=== PATIENT | male | born 1965 | race Caucasian/White ===

== ENCOUNTER 2018-08-19 09:24 | Day surgery (SDC) | payer OTHER ==
[2018-08-17 17:28] VITALS: BMI 28.1
[~2018-08-19 09:24] MED LIST: LACTATED RINGERS 1,000 ML IV SCH; LIDOCAINE 1% 20 ML VIAL (10MG/ML) FOR IV START INTRADERMA PRN; MIDAZOLAM (PF) 2 MG/2 ML VIAL IV PRN
[2018-08-19 10:05] VITALS: TEMP 98.8
[2018-08-19] MEDS ORDERED: LIDOCAINE 1% INJ 10MG/ML (20 ML MDV) ONE (10:16)
[2018-08-19] MEDS ORDERED: PROPOFOL 10 MG/ML 20 ML VIAL IV ONE (10:16)
--- NOTE | 2018-08-19 10:35 | P.GSHP ---
History of Present Illness H&P Date: 08/19/18 Chief Complaint: GERD, change in bowel habits Patient here today for upper and lower endoscopy. Patient has complaints of chronic reflux. Some dysphagia symptoms. Also has intermittent diarrhea and constipation. No rectal bleeding. Past Medical History Past Medical History: GERD/Reflux, Hyperlipidemia, Skin Disorder Additional Past Medical History / Comment(s): rosacea History of Any Multi-Drug Resistant Organisms: None Reported Past Surgical History: No Surgical Hx Reported Past Anesthesia/Blood Transfusion Reactions: No Reported Reaction Smoking Status: Former smoker - Past Family History Mother Family Medical History: No Reported History Medications and Allergies Home Medications Medication Instructions Recorded Confirmed Type Atorvastatin [Lipitor] 20 mg PO DAILY 08/17/18 08/17/18 History Doxycycline [Vibramycin] 50 mg PO DAILY 08/17/18 08/17/18 History Omeprazole [PriLOSEC] 20 mg PO DAILY 08/17/18 08/17/18 History Allergies Allergy/AdvReac Type Severity Reaction Status Date / Time No Known Allergies Allergy Verified 08/17/18 17:21 Surgical - Exam Vital Signs Temp Pulse Resp BP Pulse Ox 98.8 F 72 18 148/91 98 08/19/18 09:50 08/19/18 09:50 08/19/18 09:50 08/19/18 09:50 08/19/18 09:50 Physical exam: General: Well-developed, well-nourished HEENT: Normocephalic, sclerae nonicteric Abdomen: Nontender, nondistended Extremities: No edema Neuro: Alert and oriented Assessment and Plan (1) GERD (gastroesophageal reflux disease) Narrative/Plan: Will proceed with upper and lower endoscopy at this time Current Visit: Yes Status: Acute Code(s): K21.9 - GASTRO-ESOPHAGEAL REFLUX DISEASE WITHOUT ESOPHAGITIS SNOMED Code(s): 052008269
--- NOTE | 2018-08-19 11:02 | P.PCN ---
Date of Procedure: 08/19/18 Procedure(s) Performed: PREOPERATIVE DIAGNOSIS: GERD, change in bowel habits POSTOPERATIVE DIAGNOSIS: Small gastric nodule, diverticulosis, ascending and rectal polyp PROCEDURE: 1. EGD with biopsy 2. Colonoscopy with snare polypectomy ANESTHESIA: MAC SURGEON: Chente Julien M.D. SPECIMENS: Asked her nodule, polyps ENDOSCOPIC PROCEDURE: The patient was on the endoscopy table in the left decubitus position. The Olympus gastroscope was inserted into the oropharynx and passed under direct visualization to the region of the third portion of the duodenum. From that point the scope was slowly withdrawn inspecting all surfaces carefully. There were no neoplastic inflammatory or polypoid lesions throughout the duodenum. The pylorus was widely patent. The stomach was carefully inspected. There was some nodularity of the mucosal surfaces of the stomach. A small nodule in the antrum was biopsied using the cold biopsy forceps. Retroflexion revealed a normal hiatus. The esophagus was then carefully examined. There were no neoplastic inflammatory or polypoid lesions throughout the visualized esophagus. The patient was kept on the endoscopy table in the left decubitus position. The Olympus colonoscope was inserted into the anus and passed under direct visualization to the base of the cecum. The appendiceal orifice was visualized. From that point the scope was slowly withdrawn inspecting all surfaces carefully. There were no neoplastic inflammatory or polypoid lesions throughout the cecum. In the ascending colon there was noted be a small polyp that was removed using the snare with cautery technique. The remainder of the ascending, transverse, descending, and sigmoid colon appeared normal. In the rectum a small polyp was identified and removed using the snare with cautery technique as well. There was mild left-sided diverticulosis present. Digital rectal examination was normal. The patient was taken to the recovery room in stable condition per anesthesia guidelines. RECOMMENDATIONS: Await biopsy results. Anticipate follow-up EGD and colonoscopy 5 years. If symptoms of dysphagia persist consider modified barium swallow.
[2018-08-19 11:03] VITALS: RESP 16
[2018-08-19 11:27] VITALS: BP 155/95; PULSE 60
== END 2018-08-19 11:31 | disposition home or self-care (01) ==
LOC: ORWHC2ENDO 09:24
PROVIDERS: ATTEND Surgery
DX: K21.9 Gastro-esophageal reflux disease without esophagitis (principal); K31.89 Other diseases of stomach and duodenum; D12.2 Benign neoplasm of ascending colon; K57.90 Diverticulosis of intestine, part unspecified, without perforation or abscess without bleeding; R13.10 Dysphagia, unspecified; E78.5 Hyperlipidemia, unspecified; K59.00 Constipation, unspecified; K62.1 Rectal polyp; L71.9 Rosacea, unspecified; Z87.891 Personal history of nicotine dependence; Z79.899 Other long term (current) drug therapy
CPT/HCPCS: 88305; 45385; 43239; J2001; J2704

== ENCOUNTER → 2020-03-04 | Outpatient (CLI) | payer OTHER | END | disposition home or self-care (01) | LOC: LABWHC1 06:57 | PROVIDERS: ATTEND Family Medicine | DX: R06.09 Other forms of dyspnea (principal) ==

== ENCOUNTER 2020-05-02 11:19 | Emergency (ER) | payer OTHER ==
[2020-05-02 11:43] VITALS: BP 154/91; PULSE 74; RESP 16; TEMP 98.5
[2020-05-02] MEDS ORDERED: PROPARACAINE 0.5% OPHTH DROPS 15 ML BTL BOTH EYES STA (11:48)
[2020-05-02] MEDS ORDERED: FLUORESCEIN STRIPS 1 MG STRIP BOTH EYES ONE (11:48)
[2020-05-02] MEDS ORDERED: TOBRAMYCIN 0.3% OPHTH OINT 3.5 GM TUBE BOTH EYES STA (12:32)
--- NOTE | 2020-05-02 12:36 | ED ---
Eye Problem HPI - General Chief complaint: Eye Problems Stated complaint: metal shavings in eye Time Seen by Provider: 05/02/20 11:48 Source: patient, RN notes reviewed, old records reviewed Mode of arrival: ambulatory Limitations: no limitations - History of Present Illness Initial comments: 55 year old male whom presents today for CC of R eye irritation and possible metal foreign body from work. Pt has no pain with EOM and denies visual changes. Patient wears glasses. Pt reports he tried to rinse his eye but has no improvement. - Related Data Home Medications Medication Instructions Recorded Confirmed Atorvastatin [Lipitor] 20 mg PO DAILY 08/17/18 08/17/18 Doxycycline [Vibramycin] 50 mg PO DAILY 08/17/18 08/17/18 Omeprazole [PriLOSEC] 20 mg PO DAILY 08/17/18 08/17/18 Previous Rx's Medication Instructions Recorded Tobramycin 0.3% Ophth Soln [Tobrex 1 - 2 drop RIGHT EYE Q4H #1 bottle 05/02/20 0.3% Ophth Soln] Allergies Allergy/AdvReac Type Severity Reaction Status Date / Time No Known Allergies Allergy Verified 05/02/20 11:43 Review of Systems ROS Statement: Those systems with pertinent positive or pertinent negative responses have been documented in the HPI. ROS Other: All systems not noted in ROS Statement are negative. Past Medical History Past Medical History: GERD/Reflux, Hyperlipidemia, Skin Disorder Additional Past Medical History / Comment(s): rosacea History of Any Multi-Drug Resistant Organisms: None Reported Past Surgical History: No Surgical Hx Reported Past Anesthesia/Blood Transfusion Reactions: No Reported Reaction Past Psychological History: No Psychological Hx Reported Smoking Status: Never smoker Past Alcohol Use History: Daily Past Drug Use History: Marijuana - Past Family History Mother Family Medical History: No Reported History General Exam - General Exam Comments Initial Comments: 55 year old male, no distress. Limitations: no limitations General appearance: alert, in no apparent distress Head exam: Present: atraumatic Eye exam: Present: PERRL, EOMI, conjunctival injection (R eye), other (Piece of metal over 3 oclock osition with rust ring). Absent: normal appearance, scleral icterus, periorbital swelling ENT exam: Present: normal exam, mucous membranes moist Neck exam: Present: normal inspection. Absent: tenderness, meningismus, lymphadenopathy Respiratory exam: Present: normal lung sounds bilaterally. Absent: respiratory distress, wheezes, rales, rhonchi, stridor Extremities exam: Present: normal inspection, full ROM, normal capillary refill. Absent: tenderness, pedal edema, joint swelling, calf tenderness Back exam: Present: normal inspection Course Vital Signs 05/02/20 11:40 Temperature 98.5 F Pulse Rate 74 Respiratory 16 Rate Blood Pressure 154/91 O2 Sat by Pulse 99 Oximetry Medical Decision Making - Medical Decision Making Pt is a 55 year old male with R eye foreign body. He has metal foreign body at 3 oclock position and rust ring. Thsi was removed with amara brush and Pt tolerated procedure well. Discussed opthalmology follow up. Discussed return parameters. Disposition Clinical Impression: Foreign body, eye, Corneal rust ring Disposition: HOME SELF-CARE Condition: Good Instructions (If sedation given, give patient instructions): Eye Foreign Body (ED) Additional Instructions: Please use medication as discussed. Please follow up with family doctor if symptoms have not improved over the next two days. Please return to the emergency room if your symptoms increase or worsen or for any other concerns. Prescriptions: Tobramycin 0.3% Ophth Soln [Tobrex 0.3% Ophth Soln] 1 - 2 drop RIGHT EYE Q4H #1 bottle Is patient prescribed a controlled substance at d/c from ED?: No Referrals: Vance Espinosa MD [Primary Care Provider] - 1-2 days Diony Younger MD [STAFF PHYSICIAN] - 1-2 days Time of Disposition: 12:35
== END 2020-05-02 12:45 | disposition home or self-care (01) ==
LOC: EC 11:19
DX: T15.01XA Foreign body in cornea, right eye, initial encounter (principal); K21.9 Gastro-esophageal reflux disease without esophagitis; E78.5 Hyperlipidemia, unspecified; Z79.899 Other long term (current) drug therapy; X58.XXXA Exposure to other specified factors, initial encounter; Y93.89 Activity, other specified
CPT/HCPCS: 65220; 99283

== ENCOUNTER → 2020-06-28 | Outpatient (CLI) | payer OTHER ==
--- NOTE | 2020-06-29 11:52 | US ---
EXAMINATION TYPE: US thyroid st tissue head/neck DATE OF EXAM: 06/28/2020 COMPARISON: NONE CLINICAL HISTORY: E04.1 THYROID NODULE. Patient states doctor felt a nodule GLAND SIZE: Right Lobe: 5.1 x 1.7 x 1.4 cm Overall Parenchyma: homogenous Left Lobe: 4.8 x 1.8 x 1.6 cm Overall Parenchyma: homogeneous Isthmus Thickness: 0.4 cm NODULES RIGHT: # of nodules measured on right: 1 1. 0.4 X 0.5 x 0.3 cm isoechoic mixed nodule at the mid pole with well-defined margins and no echog enic foci. This nodule is wider than tall and shows intranodular vascularity. Prior size: no prior LEFT: # of nodules measured on left: 1 1. 1.7 X 1.5 x 1.4 cm isoechoic solid nodule at the mid pole with well-defined margins and no echog enic foci. This nodule is wider than tall and shows peripheral and intranodular vascularity. Prior size: no prior ISTHMUS: # of nodules measured in the isthmus: 0 Bilateral neck scanned, no evidence of lymphadenopathy. IMPRESSION: 1. Left thyroid 1.7 cm nodule meets TI-RADS 3 criteria. Annual follow-up is recommended. 2. Right thyroid 0.5 cm nodule.
== END | disposition home or self-care (01) ==
LOC: RADUSWWP 16:10
PROVIDERS: ATTEND Family Medicine
DX: E04.2 Nontoxic multinodular goiter (principal)
CPT/HCPCS: 76536

== ENCOUNTER → 2020-08-14 | Outpatient (CLI) | payer OTHER ==
--- NOTE | 2020-08-15 12:40 | FL ---
EXAMINATION TYPE: FL barium swallow w video DATE OF EXAM: 08/14/2020 COMPARISON: NONE HISTORY: Dysphasia TECHNIQUE: Fluoroscopy. FINDINGS: Fluoroscopic guidance was provided for the procedure performed in conjunction with the [facility] pathology department. Please see complete report forthcoming from the Speech Pathology departmen t. Various consistencies from thin liquid to solids were administered. Fluoroscopy time 1 minute 25 seconds. Number of images: 0. No aspiration or penetration was evident. No significant pooling was observed in the vallecula. There was normal propulsion of the bolus. IMPRESSION: 1. Normal modified barium swallow
== END | disposition home or self-care (01) ==
LOC: RADFLMAIN 10:41
PROVIDERS: ATTEND Internal Medicine
DX: K22.8 Other specified diseases of esophagus (principal)
CPT/HCPCS: 74230

== ENCOUNTER 2020-08-15 10:42 | Day surgery (SDC) | payer OTHER ==
[2020-08-14 11:54] VITALS: BMI 28.8
[2020-08-15 11:11] VITALS: TEMP 97.8
[2020-08-15] MEDS ORDERED: LACTATED RINGERS 1,000 ML IV ONE (11:11)
[2020-08-15] MEDS ORDERED: LIDOCAINE 1% (10MG/ML) FOR IV START INTRADERMA ONE (11:12)
[2020-08-15] MEDS ORDERED: LIDOCAINE 1% INJ 10MG/ML (20 ML MDV) ONE (12:17)
[2020-08-15] MEDS ORDERED: PROPOFOL 10 MG/ML 20 ML VIAL IV ONE (12:17)
[2020-08-15 12:40] VITALS: BP 148/95; RESP 16
--- NOTE | 2020-08-15 12:45 | P.PCN ---
Date of Procedure: 08/15/20 Description of Procedure: BRIEF HISTORY: Patient is a 55-year-old male presenting for esophagogastroduodenoscopy for evaluation of dysphagia. He reports dysphagia which is been going on for the past few years. He reports episodes of choking and difficulty breathing in association with these symptoms. PROCEDURE PERFORMED: Esophagogastroduodenoscopy with biopsy. PREOPERATIVE DIAGNOSIS: Dysphagia, esophageal dysphagia. ESTIMATED BLOOD LOSS: Minimal. IV sedation per anesthesia. PROCEDURE: After informed consent was obtained, the patient was brought into the endoscopy unit. IV sedation was administered by Anesthesia under continuous monitoring. Initially the Olympus GIF-190 video endoscope was inserted into the mouth. Esophagus intubated without any difficulty. It was gradually advanced into the stomach and duodenum and carefully examined. The bulb and the second part of the duodenum appeared normal, With biopsies taken. The scope at this time was withdrawn to the stomach, adequately insufflated with air, and upon careful examination, mucosa of the antrum, body, cardia and the fundus appeared normal, Except for some erythema and nodularity in the antrum suggestive of mild antritis with biopsies taken. The scope was then withdrawn into the esophagus. The GE junction was located at 39 cm from the incisors. The esophagus appeare grossly normal with no erosions or ulcerations, biopsies taken at the GE junction and mid esophagus. There was mild to moderate tenderness in the proximal esophagus, unclear if this is secondary to external compression and the patient with a known history of thyroid nodules or secondary to cricopharyngeal dysphagia. The patient tolerated the procedure well. IMPRESSION: 1. Mild gastritis . 2. Mild difficulty passing the scope through the upper esophagus, unclear if this is secondary to external compression versus cricopharyngeal dysphagia with further investigation ongoing. 3. Biopsies of the duodenum, antrum, GE junction and midesophagus. RECOMMENDATIONS: The findings of this examination were discussed with the patient and his family. Okay to resume diet. Okay to resume medications. Continue medical workup as advised the patient scheduled for a video swallow as well as a very mild esophagram. May require manometry in the future for further evaluation or possible computed tomography scan of the neck to rule out external compression from bone spurs or thyroid nodules.
[2020-08-15 12:58] VITALS: PULSE 59
== END 2020-08-15 13:09 | disposition home or self-care (01) ==
LOC: ORWHC2ENDO 10:42
PROVIDERS: ATTEND Internal Medicine
DX: K21.00 Gastro-esophageal reflux disease with esophagitis, without bleeding (principal); K29.50 Unspecified chronic gastritis without bleeding; K22.8 Other specified diseases of esophagus; E04.1 Nontoxic single thyroid nodule; E78.5 Hyperlipidemia, unspecified; Z87.891 Personal history of nicotine dependence; Z79.899 Other long term (current) drug therapy; Z98.890 Other specified postprocedural states
CPT/HCPCS: 88305; 43239; J2001; J2704

== ENCOUNTER → 2021-02-26 | Outpatient (CLI) | payer OTHER ==
--- NOTE | 2021-02-26 09:16 | MR ---
EXAMINATION TYPE: MR cervical spine wo con DATE OF EXAM: 02/26/2021 COMPARISON: Thyroid ultrasound 06/28/2020 HISTORY: 55-year-old male Primary osteoarthritis, right shoulder, cervicalgia, cervical disc disorder w/radiculopathy. M19.011; M54.2; M50.10 TECHNIQUE: Multiplanar, multisequence images of the cervical spine were acquired. FINDINGS: No craniocervical junction anomaly, predental space widening, or prevertebral soft tissue swelling. No suspicious bone marrow replacement. Some mixed Modic type II endplate change associated with mild to moderate degenerative disc disease throughout. Intervertebral discs are mildly narrowed, desiccate d, demonstrate disc osteophyte complexes, particularly at C4-C7 levels. Additional ligamentum flavum thickening at these levels with scattered facet and uncovertebral joint arthropathy throughout. Preserved alignment of the cervical spine. At C2-C3, facet arthropathy without significant canal or foraminal stenosis. At C3-C4, uncovertebral joint and facet arthropathy. Mild bilateral neuroforaminal narrowing. No spin al canal stenosis. At C4-C5, broad-based disc osteophyte complex with uncovertebral joint and facet arthropathy as well as ligamentum flavum thickening. Changes are located moderate right greater than left neural foramina l stenosis. Mild overall spinal canal stenosis. At C5-C6, broad-based disc osteophyte complex with uncovertebral joint and facet arthropathy as well as ligamentum flavum thickening. Severe left greater than right neural foraminal stenoses. There is a butment of both the dorsal and ventral cord and slight ventral cord flattening. Overall moderate narr owing of the spinal canal to an AP canal dimension of 6.5 mm. At C6-C7, broad-based disc osteophyte complex with uncovertebral joint and facet degenerative change. Severe right greater than left neural foraminal stenosis. There is abutment and flattening of the ve ntral cord with mild overall spinal canal stenosis. At C7-T1, facet arthropathy without significant canal or foraminal stenosis. No discrete T2-weighted cord signal abnormality. 1.5 cm T2 hyperintense left thyroid lobe nodule. We note a TR3, 1.7 cm nodule was described in the [facility] 06/28/2020 thyroid ultrasound. Refer to that report for appropriate follow-up recommendations . IMPRESSION: 1. Moderate degenerative disc disease especially C4-C7 levels. Multilevel hypertrophic facet and unco vertebral joint arthropathy. Some additional ligamentum flavum thickening at C4-C7. 2. Changes result in overall moderate spinal canal stenosis at C5-C6 with abutment of both the dorsal and ventral aspects of the cord and ventral cord flattening. No high-grade canal compromise or myelo pathic cord signal change. Severe left greater than right neuroforaminal stenosis at this level. 3. Additional mild spinal canal stenoses at C4-C5 and C6-C7. Severe right greater than left neurofora tim stenosis at C6-C7. Moderate right greater than left foraminal stenosis at C4-C5. 4. Known left thyroid lobe nodule. Appropriate follow-up recommended. Refer to thyroid ultrasound rep ort of 06/28/2020 for recommendations.
== END | disposition home or self-care (01) ==
LOC: RADMRIMAIN 07:08
PROVIDERS: ATTEND Orthopaedic Surgery Sports Medicine
DX: M48.02 Spinal stenosis, cervical region (principal); M99.71 Connective tissue and disc stenosis of intervertebral foramina of cervical region; M50.223 Other cervical disc displacement at C6-C7 level
CPT/HCPCS: 72141

== ENCOUNTER → 2021-11-14 | Outpatient (CLI) | payer OTHER ==
--- NOTE | 2021-11-15 10:59 | US ---
EXAMINATION TYPE: US thyroid st tissue head/neck DATE OF EXAM: 11/14/2021 COMPARISON: US 2019 CLINICAL HISTORY: E04.2 Goiter. Thyroid nodules, history of thyroid FNA GLAND SIZE: Right Lobe: 5.1 x 1.6 x 1.8 cm Overall Parenchyma: homogenous Left Lobe: 4.7 x 1.9 x 2.1 cm Overall Parenchyma: homogeneous Isthmus Thickness: 0.4 cm NODULES RIGHT: # of nodules measured on right: 1 1. 0.6 X 0.4 x 0.6 cm, mid medial, mixed cystic and solid, hypoechoic nodule, which is wider than t all, with smooth margins, without echogenic foci. Prior size: 0.4 x 0.5 x 0.3 cm LEFT: # of nodules measured on left: 1 1. 1.9 X 1.4 x 1.6 cm, mid, solid or almost completely solid, hypoechoic nodule, which is wider mich n tall, with smooth margins, without echogenic foci. Prior size: 1.7 x 1.5 x 1.4 cm ISTHMUS: # of nodules measured in the isthmus: 0 Bilateral neck scanned, no evidence of lymphadenopathy. IMPRESSION: Thyromegaly with stable multinodular thyroid. 2017 ACR TI-RADS LEVEL: TR-RADS 4 - Moderately Suspicious: Follow if > 1 cm, FNA if > 1.5 cm *Highest TI-RADS level nodule reported
== END | disposition home or self-care (01) ==
LOC: RADUSWWP 16:55
PROVIDERS: ATTEND Family Medicine
DX: E04.2 Nontoxic multinodular goiter (principal)
CPT/HCPCS: 76536

== ENCOUNTER → 2021-12-24 | Outpatient (CLI) | payer OTHER ==
--- NOTE | 2021-12-24 10:15 | MR ---
EXAMINATION TYPE: MR cervical spine wo con DATE OF EXAM: 12/24/2021 COMPARISON: Prior cervical MRI 02/26/2021 HISTORY: Spondylosis, neck pain TECHNIQUE: Multiplanar, multisequence images of the cervical spine were acquired without contrast. C2-C3: No evidence for degenerative disc disease. No disc bulge/herniation or protrusion. No Canal stenosis. Foramina are patent in stable bilaterally, facet arthropathy again noted. C3-C4: Mild posterior central disc bulge again noted, uncovertebral joint hypertrophy and facet arthr opathy again seen causing some foraminal encroachment bilaterally. No significant spinal stenosis. C4-C5: Uncovertebral joint hypertrophy and facet arthropathy results in foraminal encroachment right greater than left similar to prior exam. No evident disc herniation. C5-C6: No evident disc herniation. Uncovertebral joint hypertrophy and facet arthropathy causes bilat eral foraminal encroachment similar to prior exam. C6-C7: Uncovertebral joint hypertrophy and facet arthropathy cause bilateral foraminal encroachment s imilar to prior exam. No evident disc herniation. Mild posterior disc bulge causes slight anterior ma ss effect on the thecal sac. C7-T1: Posterior broad-based disc bulge causes mild anterior mass effect on the thecal sac. Uncoverte bral joint hypertrophy and facet arthropathy shows a similar appearance, question some right-sided fo raminal encroachment. Cervical segments are intact. There is normal alignment. Cervical spinal cord is of normal signal. Craniovertebral junction relationships are within normal limits. Patient is status post anterior ce rvical fusion and discectomy at C4-C7, susceptibility artifact is present, intervertebral spacing blo cks noted. There is no significant spinal stenosis. T2 bright lesion involving the left thyroid gland is again noted incidentally. IMPRESSION: Postop changes, multilevel foraminal encroachment. Mild degenerative disc change as described.
== END | disposition home or self-care (01) ==
LOC: RADMRIMAIN 08:30
DX: M50.33 Other cervical disc degeneration, cervicothoracic region (principal)
CPT/HCPCS: 72141

== ENCOUNTER 2024-10-03 10:54 | Day surgery (SDC) | payer MEDICARE ==
[2024-09-28 10:10] VITALS: BMI 26.6
[2024-10-03 11:32] VITALS: TEMP 98
[2024-10-03] MEDS: LACTATED RINGERS 1,000 ML IV SCH (11:35)
[2024-10-03] MEDS: IV FLUID CONTINUATION 1,000 ML IV ONE (11:36)
[2024-10-03] MEDS ORDERED: LIDOCAINE 2% (PF) 20 MG/ML 5 ML VIAL ONE (12:19)
[2024-10-03] MEDS ORDERED: PROPOFOL 10 MG/ML 20 ML VIAL IV ONE (12:19)
--- NOTE | 2024-10-03 12:23 | P.GSHP ---
History of Present Illness H&P Date: 10/03/24 Chief Complaint: Screening with history of polyp 59-year-old male here for colonoscopy. Last colonoscopy 7 years ago. Patient with history of 2 polyps at that time. No family history of colon cancer. Past Medical History Past Medical History: GERD/Reflux, Hyperlipidemia, Hypertension, Skin Disorder Additional Past Medical History / Comment(s): rosacea History of Any Multi-Drug Resistant Organisms: None Reported Past Surgical History: Back Surgery Additional Past Surgical History / Comment(s): colonoscopy, neck surgery, fusion cage Past Anesthesia/Blood Transfusion Reactions: No Reported Reaction Additional Past Anesthesia/Blood Transfusion Reaction / Comment(s): no blood tr ansfusion Smoking Status: Current every day smoker - Past Family History Mother Family Medical History: No Reported History Medications and Allergies Home Medications Medication Instructions Recorded Confirmed Type Atorvastatin [Lipitor] 20 mg PO HS 08/17/18 10/03/24 History Omeprazole [PriLOSEC] 20 mg PO DAILY 08/17/18 10/03/24 History lisinopriL [Prinivil] 10 mg PO DAILY 09/28/24 10/03/24 History Allergies Allergy/AdvReac Type Severity Reaction Status Date / Time No Known Allergies Allergy Verified 10/03/24 11:29 Surgical - Exam Vital Signs Temp Pulse Resp BP Pulse Ox 98.0 F 65 18 132/83 99 10/03/24 11:27 10/03/24 11:27 10/03/24 11:27 10/03/24 11:27 10/03/24 11:27 Physical exam: General: Well-developed, well-nourished HEENT: Normocephalic, sclerae nonicteric Abdomen: Nontender, nondistended Extremities: No edema Neuro: Alert and oriented Assessment and Plan (1) Encounter for screening colonoscopy Narrative/Plan: Will proceed with colonoscopy at this time. Current Visit: Yes Status: Acute Code(s): Z12.11 - ENCOUNTER FOR SCREENING FOR MALIGNANT NEOPLASM OF COLON SNOMED Code(s): 037749612
--- NOTE | 2024-10-03 12:36 | P.PCN ---
Date of Procedure: 10/03/24 Procedure(s) Performed: PREOPERATIVE DIAGNOSIS: Colon cancer screening with history of polyps POSTOPERATIVE DIAGNOSIS: Normal exam PROCEDURE: Colonoscopy ANESTHESIA: MAC SURGEON: Chente Julien M.D. SPECIMENS: None ENDOSCOPIC PROCEDURE: The patient was placed on the endoscopy table in the left decubitus position. The Olympus colonoscope was inserted into the anus and passed under direct visualization to the base of the cecum. The appendiceal orifice was visualized. From that point the scope was slowly withdrawn inspecting all surfaces carefully. There were no neoplastic inflammatory or polypoid lesions throughout the cecum, ascending, transverse, descending, sigmoid and rectum. There was no visible diverticulosis noted. Digital rectal examination was normal. The patient was taken to the recovery room in stable condition per anesthesia guidelines. RECOMMENDATIONS: Resume diet. Repeat colonoscopy 7 years.
[2024-10-03 12:58] VITALS: BP 125/79; PULSE 65; RESP 18
== END 2024-10-03 13:21 | disposition home or self-care (01) ==
LOC: ORWHC2ENDO 10:54
PROVIDERS: ATTEND Surgery
DX: Z12.11 Encounter for screening for malignant neoplasm of colon (principal); I10 Essential (primary) hypertension; E78.5 Hyperlipidemia, unspecified; K21.9 Gastro-esophageal reflux disease without esophagitis; F17.200 Nicotine dependence, unspecified, uncomplicated; Z79.899 Other long term (current) drug therapy; Z86.0100 Personal history of colon polyps, unspecified
CPT/HCPCS: J2704; J2003; G0121; 45378